=== PATIENT | male | born 1950 | race Caucasian/White ===

== ENCOUNTER → 2017-05-18 | Outpatient (CLI) | payer BC, MEDICARE ==
--- NOTE | 2017-05-18 16:04 | KCIC ---
CHEST PA LATERAL History: Chronic cough, history of pneumonia. Comparison: Two-view chest May 02, 2016. Findings: Left chest dual-chamber pacer. The cardiomediastinal silhouette is normal. The floridalma are prominent but unchanged. The lungs are clear. No pleural effusion or pneumothorax is seen. There is no acute bone abnormality. IMPRESSION: No acute cardiopulmonary process. Electronically signed by: Saman Andrews MD (05/18/2017 4:01 PM) [id number]
== END | disposition home or self-care (01) ==
LOC: KCIC 13:28
PROVIDERS: ATTEND Nurse Practitioner Family
DX: R05 Cough (principal); Z87.01 Personal history of pneumonia (recurrent)
CPT/HCPCS: 71020

== ENCOUNTER → 2018-05-15 | Outpatient (CLI) | payer BC, MEDICARE ==
--- NOTE | 2018-05-15 16:06 | KCIC ---
PELVIS History: Sacroiliac joint pain for a few months.. Comparison: None are available Single AP image demonstrates uniform appearance of the sacroiliac joints, without evidence of ankylosis, erosive change or sclerosis. No aggressive bone destruction is identified. No acute fracture. Hip joints are intact. Stool obscures the sacrum and upper pelvis. IMPRESSION: No significant radiographic abnormality. Sacroiliac joints appear grossly preserved. MRI could further evaluate as indicated. Electronically signed by: Rojas Morel MD (05/15/2018 4:02 PM) [email or web address]
== END | disposition home or self-care (01) ==
LOC: KCIC 12:34
PROVIDERS: ATTEND Family Medicine
DX: M53.3 Sacrococcygeal disorders, not elsewhere classified (principal)
CPT/HCPCS: 72170

== ENCOUNTER → 2018-06-13 | Outpatient (CLI) | payer BC, MEDICARE ==
--- NOTE | 2018-06-13 14:14 | KCIC ---
Examination: CT sinuses without contrast. HISTORY: History of congestion, drainage COMPARISON: None available TECHNIQUE: Axial CT images of the sinuses were performed without contrast. Coronal and sagittal reformats are performed. Exposure: One or more of the following individualized dose reduction techniques were utilized for this examination: 1. Automated exposure control 2. Adjustment of the mA and/or kV according to patient size 3. Use of iterative reconstruction technique FINDINGS: There is complete opacification of the left anterior ethmoidal air cells. The visualized frontal sinuses, right maxillary sinus, sphenoid sinuses are unopacified. Mild mucosal thickening identified in the bilateral maxillary sinus. The left ostiomeatal complex is opacified. The right ostiomeatal complex is narrowed. The bilateral mastoid air cells are clear. The nasal septum is minimally deviated to the right. The bilateral orbital globes appear intact. Retro-orbital fat is maintained. IMPRESSION: 1. Complete opacification of the left anterior ethmoidal air cells likely sinus disease.The left ostiomeatal complex is opacified. The right ostiomeatal complex is narrowed. Electronically signed by: Robin Galvin MD (06/13/2018 2:10 PM) [email or web address]
== END | disposition home or self-care (01) ==
LOC: KCIC CT 13:34
PROVIDERS: ATTEND Family Medicine
DX: J32.0 Chronic maxillary sinusitis (principal)
CPT/HCPCS: 70486

== ENCOUNTER → 2021-06-25 | Outpatient (CLI) | payer BC, MEDICARE ==
--- NOTE | 2021-06-25 13:48 | KCIC ---
XR CHEST 2V INDICATION: COUGH, COVID 2 WEEKS AGO. . COMPARISON STUDY: [birth year]/1970. FINDINGS: Left pectoral pacemaker Lungs: Normal lung volume. No pulmonary mass or consolidation. The tracheobronchial tree and hilar st ructures are normal. Pleura: No pleural effusion or pneumothorax. Heart and Mediastinum: The cardiomediastinal silhouette is normal. The great vessels of the thorax ar e normal. Bones and Soft Tissues: The bones and soft tissues are within normal limits. IMPRESSION: No acute cardiopulmonary process. Electronically signed by: Tito Moore MD (06/25/2021 1:45 PM) [id number]
== END ==
LOC: KCIC 11:42
PROVIDERS: ATTEND Family Medicine
DX: R05.9 Cough, unspecified (principal)
CPT/HCPCS: 71046